=== PATIENT | female | born 1955 | race Caucasian/White ===

== ENCOUNTER → 2016-07-01 | Outpatient (CLI) | payer OTHER ==
--- NOTE | 2016-07-01 12:18 | US ---
Ultrasound Pelvis Complete (Transabdominal and Endovaginal) History: Restricted left groin movement. LMP: Postmenopausal Findings: Transabdominal and endovaginal ultrasound images were obtained. Endovaginal images obtaine d for better evaluation of the uterine myometrium and adnexa. Duplex doppler is used to evaluate the ovarian bloodflow. The uterus is normal in size. No masses are present. The uterus measures 5.1 x 2.5 x 2.7 cm. The endo metrial measures 3 mm in thickness. The ovaries are normal in size. The right ovary measures 2.1 x 1. 7 x 1.1 cm. Right ovarian volume = 1.9 cc. The left ovary measures 2.2 x 1.2 x 0.8 cm. Left ovarian v olume = 1.1 cc No adnexal masses. No free fluid is identified in the pelvis. Color and pulsed duplex doppler flow is identified in both ovaries . Right ovarian resistive index = 0.52 and left ovarian r esistive index = 0.67. Impression: 1. Normal postmenopausal pelvic sonogram.
== END ==
LOC: BMCIMAGING 10:43
PROVIDERS: ATTEND Midwife
DX: Z01.419 Encounter for gynecological examination (general) (routine) without abnormal findings (principal); Z78.0 Asymptomatic menopausal state

== ENCOUNTER → 2016-12-19 | Outpatient (CLI) | payer OTHER | LOC: BMCIMAGING 15:11 | PROVIDERS: ATTEND Internal Medicine | DX: Z12.31 Encounter for screening mammogram for malignant neoplasm of breast (principal) | CPT/HCPCS: G0202 ==

== ENCOUNTER → 2018-01-11 | Outpatient (CLI) | payer OTHER | LOC: BMCIMAGING 12:40 | PROVIDERS: ATTEND Internal Medicine | DX: Z12.31 Encounter for screening mammogram for malignant neoplasm of breast (principal) ==

== ENCOUNTER → 2018-10-20 | Outpatient (CLI) | payer OTHER | LOC: BMCIMAGING 11:17 | PROVIDERS: ATTEND Internal Medicine | DX: R92.8 Other abnormal and inconclusive findings on diagnostic imaging of breast (principal) ==